=== PATIENT | female | born 1990 | race Caucasian/White ===

== ENCOUNTER 2019-09-06 22:50 | Inpatient (IN) | payer BC ==
[2019-09-06 23:34] LABS: Urine Appearance Cloudy; Urine Bacteria Absent (Absent); Urine Bilirubin Negative (Negative); Urine Blood 3+ (Negative); Urine Color Yellow; Urine Glucose Negative (Negative); Urine Ketones Negative (Negative); Urine Nitrite Negative (Negative); Urine Protein Negative (Negative); Urine Red Blood Cell 2+(6-10/hpf) (Absent); Urine Specific Gravity 1.008 (1.010-1.030); Urine Squamous Epithelial Cell Present (Absent); Urine Urobilinogen Negative (Negative); Urine White Blood Cell 3+(>20/hpf) (Absent)
[2019-09-07] MEDS ORDERED: Nalbuphine* 10 MG/ML 1 ML VIAL IV PRN (00:18)
[2019-09-07] MEDS ORDERED: Promethazine INJ(RESTRICTED)* 25 MG/ML 1 ML VIAL IV ONE (00:20)
[2019-09-07] MEDS: Lactated Ringers 1000 ML Bag* 1,000 ML IV SCH ×3 (00:53→06:24)
[2019-09-07 05:21] LABS: ABS Eosinophils 0.1 10^3/ul (0-0.6); ABS Lymphocytes 1.4 10^3/ul (1.0-4.8); ABS Monocytes 0.9 10^3/ul (0-0.8); ABS Neutrophils 13.7 10^3/ul (1.5-7.7); Eosinophil % 0.3 %; Hematocrit 38 % (35-47); Hemoglobin 12.8 g/dL (12.0-16.0); Lymphocyte % 8.7 %; Mean Corpuscular HGB Conc 34 g/dL (31-36); Mean Corpuscular Hemoglobin 30 pg (27-31); Mean Corpuscular Volume 88 fL (80-97); Mean Platelet Volume 8.6 fL (7.4-10.4); Nucleated Red Blood Cells % 0.1; Platelet Count 282 10^3/uL (150-450); Red Blood Count 4.34 10^6 /uL (3.70-4.87); Red Cell Distribution Width 14 % (10-15); White Blood Count 16.1 10^3/uL (3.5-10.8)
[2019-09-07] MEDS ORDERED: OBEPIDURAL* 250 ML EPIDURAL ONE (05:28)
[2019-09-07] MEDS ORDERED: Vancomycin(*) 1,000 MG VIAL ONE (05:53)
--- NOTE | 2019-09-07 05:54 | HP ---
General Information - Reason for Visit 29 y.o. Presented 09/06/2019 in early labor, pt rested well with nubain and phenegan, woke up with increased pain and is requesting epidural. - General Information Maternal Age: 29 Grav: 1 Para: 0 SAB: 0 IEA: 0 Estimated Due Date: 08/29/19 Determined By: Early Ultrasound Gestational Age in Weeks/Days: 41w 2d Maternal Blood Type and Rh: B Positive - Results this Serology/RPR Result: Non-Reactive Rubella Result: Immune HBsAg Result: Negative HIV Result: Negative GBS Culture Result: Positive Past Medical History Pertinent Past Medical History: See Records Pertinent Past Surgical History: None - history of depression Pertinent Family History: See Records - MGF: lung CA, CVD; M:HTN; MGM : bladder CA, CVD, HTN, high chol; F: CVD; PGM: DM; PGF: Parkinson's Disease - Antepartal Records Antepartal Records: Reviewed, Complicated by: - GBS positive (PNC allergy), low lying placenta (resolved) Review of Systems Constitutional: Uncomfortable CV Complaint: No Respiratory: Shortness of Breath: No Gastrointestinal: No Nausea/Vomiting, Normal Bowel Movement Genitourinary: No Dysuria, No Bleeding, No Leaking Fluid, Spotting Musculoskeletal: No Epigastric Pain, Contractions Neurological: No Headache, No Visual Changes Movement: Normal Exam Allergies/Adverse Reactions: Allergies bee venom protein (honey bee) Allergy (Verified 09/06/19 23:49) Rash rash at site Penicillins Allergy (Verified 09/06/19 23:49) Rash P:115, BP:116/78 Lab Values - Entire Visit: Laboratory Tests 09/06/19 09/07/19 09/07/19 23:00 00:30 00:30 WBC 16.1 H RBC 4.34 Hgb 12.8 Hct 38 MCV 88 MCH 30 MCHC 34 RDW 14 Plt Count 282 MPV 8.6 Neut % (Auto) 85.4 Lymph % (Auto) 8.7 [place] % (Auto) 5.4 Eos % (Auto) 0.3 Baso % (Auto) 0.2 Absolute Neuts (auto) 13.7 H Absolute Lymphs (auto) 1.4 Absolute Monos (auto) 0.9 H Absolute Eos (auto) 0.1 Absolute Basos (auto) 0.0 Absolute Nucleated RBC 0.0 Nucleated RBC % 0.1 Urine Color Yellow Urine Appearance Cloudy Urine pH 7.0 Ur Specific [place] 1.008 L Urine Protein Negative Urine Ketones Negative Urine Blood 3+ A Urine Nitrate Negative Urine Bilirubin Negative Urine Urobilinogen Negative Ur Leukocyte Esterase 3+ A Urine WBC (Auto) 3+(>20/hpf) A Urine RBC (Auto) 2+(6-10/hpf) A Ur Squamous Epith Cells Present A Urine Bacteria Absent Urine Glucose Negative Vag Amniotic Fld Detect Blood Type B Positive 09/07/19 04:41 WBC RBC Hgb Hct MCV MCH MCHC RDW Plt Count MPV Neut % (Auto) Lymph % (Auto) [place] % (Auto) Eos % (Auto) Baso % (Auto) Absolute Neuts (auto) Absolute Lymphs (auto) Absolute Monos (auto) Absolute Eos (auto) Absolute Basos (auto) Absolute Nucleated RBC Nucleated RBC % Urine Color Urine Appearance Urine pH Ur Specific [place] Urine Protein Urine Ketones Urine Blood Urine Nitrate Urine Bilirubin Urine Urobilinogen Ur Leukocyte Esterase Urine WBC (Auto) Urine RBC (Auto) Ur Squamous Epith Cells Urine Bacteria Urine Glucose Vag Amniotic Fld Detect Negative Blood Type - Measurements Height: 5 ft 3 in Weight: 218 lb Weight in lbs: [phone] Body Mass Index (BMI): 38.6 Pre- Weight: 202 lb Weight Gained This : 16 lbs and 0 ozs - Exam Breast: Breast Exam Deferred CVA: No CVA Tenderness Extremities: No Edema Heart: Normal Rhythm/Heart Sounds HEENT: No Significant Findings Lungs: Clear Bilaterally Rectal: Rectal Exam Deferred Reflexes: DTR 2+ Thyroid: No Thyromegaly - Abdominal Exam Abdomen Exam: Fundal Height Consistent with Dates - Ultrasound/Biophysical Profile Ultrasound Status: Not Done Targeted Exam Findings Estimated Weight: 8 lbs Cervical Exam: 6cm Effacement: 100% Station: -1 Presenting Part: Vertex Membrane Status: Intact Bleeding/Discharge: Bloody Show EFM Findings - External Monitor Findings Baseline Heart Rate: 125 External Monitor Findings: Accelerations Present, No Pattern of Variable or Late Decelerations, Variability Moderate, Baseline Stable Contractions: Regular, Moderate, 45-90 Seconds Contraction Frequency: 2-3 Assessment/Plan - Assessment 29 y.o. 41wks 2days EGA, active labor, Cat I NST - Obstetrical Risk Factors Obstetrical Risk Factors: GBS Positive - Plan Plan: Antibiotic Prophylaxis, Admit - Anticipate Vaginal Delivery - Date/Time of Admission Date of Admission: 09/07/19 Time of Admission: 05:30
[2019-09-07] MEDS ORDERED: Vancomycin(*) 2,000 MG in NS 0.9% 500 ML* 500 ML IVPB ONE (06:00)
[2019-09-07] MEDS ORDERED: Ropivacaine (OR use only) 2 MG/ML 10 ML ONE (06:08)
[2019-09-07] MEDS ORDERED: Phenylephrine 40 MCG/ML SYRINGE IV PUSH PRN ×2 (06:39)
[2019-09-07] MEDS ORDERED: Lactated Ringers 1000 ML Bag* 1,000 ML IV ONE (06:39)
[2019-09-07] MEDS ORDERED: Sodium Citrate/Citric Acid* 15 ML UDC PO PRN (06:39)
[2019-09-07] MEDS ORDERED: Famotidine TAB* 20 MG PO PRN (06:39)
[2019-09-07] MEDS ORDERED: OBEPIDURAL* 250 ML EPIDURAL SCH (07:00)
[2019-09-07] MEDS ORDERED: Lactated Ringers 1000 ML Bag* 1,000 ML IV SCH ×2 (07:00→10:00)
[2019-09-07] MEDS ORDERED: Oxytocin in LR* 20 UNITS/1,000 ML BAG IVPB ONE (09:11)
[2019-09-07] MEDS ORDERED: Glycerin ADULT SUPP PR PRN (09:54)
--- NOTE | 2019-09-07 09:54 | PROCNOTE ---
[facility] OB: Delivery Note - Delivery A Date of : 09/07/19 Time of : 09:27 Sex: Female Score 1 Minute: 8 Score 5 Minutes: 9 Gestational Age in Weeks and Days at Delivery: 41 Weeks and 2 Days Delivery Method: Spontaneous Vaginal Labor: Spontaneous Amniotic Fluid: Meconium Estimated Blood Loss: 200 Anesthesia/Analgesia: IM/IV, CEI for Labor Delivered By: Charmaine Ly - Nursery Level of Nursery: Regular/Bedside - Perineum Perineal Injury: Perineal Laceration, 2nd Degree Perineal Repair: By Delivering Practioner - Events Delivery Events of Note: Pitocin Only After Delivery, Partial Course of Antibiotics
[2019-09-07] MEDS ORDERED: Oxytocin in LR* 20 UNITS/1,000 ML BAG IVPB SCH (10:00)
[2019-09-07] MEDS ORDERED: Lidocaine 1% INJ* 10 MG/ML 30 ML SDV ONE (10:14)
[2019-09-07] MEDS: Ibuprofen TAB* 600 MG PO PRN ×2 (11:38→17:59)
[2019-09-07] MEDS: Docusate CAP* 100 MG PO SCH ×2 (13:36→21:07)
[2019-09-07] MEDS: Dibucaine 1% 28.35 GM TUBE PR PRN (13:36)
[2019-09-07] MEDS: Acetaminophen TAB* 325 MG PO PRN ×2 (16:50→21:08)
[2019-09-07] MEDS: Witch Hazel PAD* JAR TOPICAL PRN (21:11)
[2019-09-08] MEDS: Ibuprofen TAB* 600 MG PO PRN ×4 (00:05→21:35)
[2019-09-08] MEDS: Acetaminophen TAB* 325 MG PO PRN ×4 (04:21→20:25)
[2019-09-08 06:35] LABS: ABS Eosinophils 0.1 10^3/ul (0-0.6); ABS Lymphocytes 2.8 10^3/ul (1.0-4.8); ABS Monocytes 0.8 10^3/ul (0-0.8); ABS Neutrophils 7.5 10^3/ul (1.5-7.7); Hematocrit 27 % (35-47); Lymphocyte % 24.6 %; Mean Corpuscular HGB Conc 34 g/dL (31-36); Mean Corpuscular Hemoglobin 30 pg (27-31); Mean Corpuscular Volume 88 fL (80-97); Mean Platelet Volume 8.1 fL (7.4-10.4); Platelet Count 214 10^3/uL (150-450); Red Blood Count 3.06 10^6 /uL (3.70-4.87); Red Cell Distribution Width 14 % (10-15); White Blood Count 11.2 10^3/uL (3.5-10.8)
[2019-09-08] MEDS: Simethicone TAB* 80 MG TAB.CHEW PO SCH ×2 (07:16→07:17)
[2019-09-08] MEDS: Docusate CAP* 100 MG PO SCH ×3 (08:01→21:36)
[2019-09-08] MEDS: Ferrous Gluconate TAB* 324 MG TAB PO SCH ×3 (08:01→21:35)
[2019-09-09] MEDS: Acetaminophen TAB* 325 MG PO PRN ×2 (01:41→09:26)
[2019-09-09] MEDS: Ibuprofen TAB* 600 MG PO PRN (06:35)
[2019-09-09 07:58] VITALS: BP 122/66
[2019-09-09] MEDS: Ferrous Gluconate TAB* 324 MG TAB PO SCH (09:26)
[2019-09-09] MEDS: Dibucaine 1% 28.35 GM TUBE PR PRN (09:26)
[2019-09-09] MEDS: Witch Hazel PAD* JAR TOPICAL PRN (09:26)
[2019-09-09] MEDS: Docusate CAP* 100 MG PO SCH (09:26)
--- NOTE | 2019-09-09 09:53 | PTEDU ---
Patient Name: SUMAN GRAVES SUMAN GRAVES selected video: Never Ever Shake a Baby to view on 09/09/2019 at 9:50:57 AM [place] [facility] [id number]
== END 2019-09-09 12:06 | disposition home or self-care (01) | DRG 560 ==
LOC: MCHOBOUT 22:50 → MCHOB 09-07 05:19
PROVIDERS: ADMIT Midwife; ATTEND Midwife
PROC: 10E0XZZ Delivery of Products of Conception, External Approach (ICD-10-PCS; principal; 2019-09-07)
PROC: 0KQM0ZZ Repair Perineum Muscle, Open Approach (ICD-10-PCS; 2019-09-07)
DX: O48.0 Post-term pregnancy (principal); Z37.0 Single live birth; O70.1 Second degree perineal laceration during delivery; O77.0 Labor and delivery complicated by meconium in amniotic fluid; O99.824 Streptococcus B carrier state complicating childbirth; O90.81 Anemia of the puerperium; D64.9 Anemia, unspecified; Z3A.41 41 weeks gestation of pregnancy
CPT/HCPCS: 36415; 81003; 81015; 84112; 85025; 86850; 86900; 86901; 87086; A9270-GY; J2300; J2550; J2795; J3370